=== PATIENT | male | born 1945 | race Caucasian/White ===

== ENCOUNTER 2023-05-16 05:40 | Day surgery (SDC) | payer OTHER ==
[2023-05-13 11:30] VITALS: BP 133/68; PULSE 54; RESP 19
[2023-05-13 11:35] LABS: INR < 0.93 (0.85-1.15); PROTHROMBIN TIME 10.8 SEC (9.6-11.6)
[2023-05-13 11:36] LABS: PARTIAL THROMBOPLASTIN TIME 28.9 SEC (26.3-35.5)
[~2023-05-16] VITALS: Ht 172.7 cm; Wt 81.5 kg
[2023-05-16] VITALS (12 sets, daily range): BP systolic 100–133; BP diastolic 53–70; PULSE 51–66; RESP 14–18
[~2023-05-16 05:40] MED LIST: AMLO-258 PO; METF-445 PO
[2023-05-16] MEDS ORDERED: 0.9%NACL 1000ML 1,000 ML IV ONE (06:14)
[2023-05-16] MEDS: CEFAZOLIN SODIUM 2 GM VIAL ONE ×2 (06:51→07:30)
[2023-05-16] MEDS ORDERED: LIDOCAINE HCL-MPF 0.5% 50ML VIAL IJ ONE (06:55)
[2023-05-16] MEDS ORDERED: MIDAZOLAM HCL 1 MG/ML 2ML VIAL ONE (07:03)
[2023-05-16] MEDS ORDERED: LIDOCAINE PF 100MG/5ML (2%) SYRINGE 5ML ONE (07:03)
[2023-05-16] MEDS ORDERED: PROPOFOL 10 MG/ML 20ML VIAL IV ONE (07:03)
[2023-05-16] MEDS ORDERED: FENTANYL CITRATE PF 50 MCG/1 ML 2ML VIAL ONE (07:04)
[2023-05-16] MEDS ORDERED: GLYCOPYRROLATE 1 MG/5 ML SYRINGE ONE (07:28)
[2023-05-16] MEDS ORDERED: BUPIVACAINE/PF 0.25% 30ML VIAL IJ ONE (07:42)
== END 2023-05-16 09:15 | disposition home or self-care (01) ==
LOC: DAH 05:40
PROVIDERS: ATTEND Student in an Organized Health Care Education/Training Program
DX: G56.02 Carpal tunnel syndrome, left upper limb (principal); I10 Essential (primary) hypertension; E11.9 Type 2 diabetes mellitus without complications; M19.90 Unspecified osteoarthritis, unspecified site; F17.210 Nicotine dependence, cigarettes, uncomplicated; Z79.01 Long term (current) use of anticoagulants; Z79.899 Other long term (current) drug therapy; Z98.890 Other specified postprocedural states; Z88.0 Allergy status to penicillin
CPT/HCPCS: 85610; 85730; 36415; 93005; 64721; 82948 ×2; A4663; J3010; J3490 ×2; J7030; J0665; J2001; J2250; J2704; J0690; A6223; A4649; A5120; A4215; A4223; A4222; A4221